=== PATIENT | male | born 1990 | race Two or more races ===

== ENCOUNTER 2018-02-07 09:29 | Emergency (ER) | payer SELFPAY ==
[2018-02-07 09:35] VITALS: BMI 35.9
[2018-02-07 09:36] VITALS: BP 131/77; RESP 20; O2SAT 100
--- NOTE | 2018-02-07 09:43 | ED PDOC ---
HPI: General Adult Time Seen by Provider: 02/07/18 09:36 Chief Complaint (Provider): eval History Per: Patient Additional Complaint(s): 27-year-old male presents via ambulance for evaluation. Patient was found asleep outside. Patient admits to drinking alcohol last night. Upon arrival to ED patient offers no acute complaints. Past Medical History Reviewed: Historical Data, Nursing Documentation, Vital Signs Vital Signs: Last Vital Signs Temp 96 F L 02/07/18 09:35 Pulse 104 H 02/07/18 09:35 Resp 20 02/07/18 09:35 BP 131/77 02/07/18 09:35 Pulse Ox 100 02/07/18 09:35 - Medical History PMH: No Chronic Diseases - Surgical History Surgical History: No Surg Hx - Family History Family History: States: No Known Family Hx - Living Arrangements Living Arrangements: With Friends/Others - Social History Current smoker - smoking cessation education provided: No Alcohol: Social Drugs: Denies - Allergies Allergies/Adverse Reactions: Allergies Allergy/AdvReac Type Severity Reaction Status Date / Time No Known Allergies Allergy Verified 02/07/18 09:47 Review of Systems ROS Statement: Except As Marked, All Systems Reviewed And Found Negative Psych: Positive for: Other (etoh use last night) Physical Exam - Reviewed Nursing Documentation Reviewed: Yes Vital Signs Reviewed: Yes - Physical Exam Appears: Positive for: Well, Non-toxic, No Acute Distress Skin: Positive for: Normal Color. Negative for: Rash Eye Exam: Positive for: Normal appearance Cardiovascular/Chest: Positive for: Regular Rate, Rhythm Respiratory: Positive for: Normal Breath Sounds. Negative for: Wheezing, Respiratory Distress Extremity: Positive for: Normal ROM Neurologic/Psych: Positive for: Alert, Oriented, Gait (steady) - ECG O2 Sat by Pulse Oximetry: 100 Pulse Ox Interpretation: Normal Medical Decision Making Medical Decision Makin27 year old male with acute complaints. Patient admits to drinking last night. He denies fall or trauma. He denies any acute medical or psychiatric complaints at this time. Patient has steady gait and is stable for discharge. Disposition - Clinical Impression Clinical Impression: Alcohol use - Patient ED Disposition Is Patient to be Admitted: No - Disposition Referrals: [facility] [Outside] Disposition: Routine/Home Disposition Time: 09:43 Condition: STABLE Additional Instructions: Follow as needed with primary care doctor. Instructions: Alcohol Use - When Is Drinking a Problem?
[2018-02-07 10:20] VITALS: PULSE 87; TEMP 97.8
== END 2018-02-07 10:19 | disposition home or self-care (01) ==
LOC: H.ER 09:29
DX: F10.10 Alcohol abuse, uncomplicated (principal)